=== PATIENT | female | born 1955 | race Caucasian/White ===

== ENCOUNTER 2018-03-13 13:52 | Inpatient (IN) ==
[2018-03-13] MEDS ORDERED: Albuterol 2.5 MG/3 ML NEBULIZER IH ONE (14:22)
[2018-03-13] MEDS ORDERED: CeFAZolin Syr 2,000MG/20 ML 2,000 MG/20 ML SYRINGE IVPB ONE (14:22)
--- NOTE | 2018-03-13 14:27 | History & Physical Report ---
Date of Encounter: 03/13/18 Time of Encounter: 14:26 24 Hour HP Update - Instructions Instructions: If the History and Physical is less than 30 days old and was completed prior to A.M. admission and or procedure and has NOT been updated on calendar day of procedure please complete this update prior to performing procedure. - Update Patient reports changes in Medical Condition: No Changes in examination, assessment, or condition: No Changes in Medication: No Preop tests/diagnostics Reviewed: Yes Surgery Remains Indicated: Yes Consent for Planned Operative Procedure(s) Verified: Yes - Pre-Operative Checklist Preoperative Checklist Indicated: No Prophylactic Antibiotic Ordered: Yes Is VTE Prophylaxis Indicated?: Yes
--- NOTE | 2018-03-13 14:29 | Discharge Summary ---
Date of Encounter: 03/14/18 Time of Encounter: 06:51 - Discharge Diagnosis (1) Rotator cuff tear arthropathy of right shoulder Priority: Primary Status: Chronic (2) Status post reverse total replacement of right shoulder Priority: Primary Status: Acute (3) Morbid obesity with BMI of 40.0-44.9, adult Priority: Secondary Status: Chronic (4) Hypertension Priority: Secondary Status: Chronic Qualifiers: Hypertension type: unspecified Qualified Code(s): I10 - Essential (primary ) hypertension (5) Hyperlipidemia Priority: Secondary Status: Chronic Qualifiers: Hyperlipidemia type: unspecified Qualified Code(s): E78.5 - Hyperlipidemia , unspecified (6) COPD (chronic obstructive pulmonary disease) Priority: Secondary Status: Chronic Qualifiers: COPD type: unspecified COPD Qualified Code(s): J44.9 - Chronic obstructive pulmonary disease, unspecified (7) Type 2 diabetes mellitus Priority: Secondary Status: Chronic Qualifiers: Diabetes mellitus shelter insulin use: unspecified shelter insulin use status Diabetes mellitus complication status: without complication Qualified Code(s): E11.9 - Type 2 diabetes mellitus without complications - Hospital Course Hospital course: Ms. Orosco is a 62 year old female Status post right total shoulder replacement reverse The patient had an uneventful postoperative course. They received antibiotics and physical therapy and were discharged in stable condition. There will follow -up in the office in 2 weeks. - Time Spent with Patient Total time spent providing and/or coordinating discharge services: - Discharge Medications Home Medications: Cholecalciferol (D-3) [Vitamin D] 2,000 unit PO DAILY 03/13/18 [History] FLUoxetine HCl [Prozac] 40 mg PO DAILY 03/13/18 [History] Levothyroxine [Synthroid] 125 mcg PO 0630 03/13/18 [History] Metoprolol [Lopressor] 50 mg PO BID 03/13/18 [History] Naproxen Sodium [Aleve] 220 mg PO BID PRN 03/13/18 [History] Omeprazole [PriLOSEC] 40 mg PO DAILY 03/13/18 [History] OxyCODONE Immed Rel [Roxicodone 5 MG] 5 mg PO Q4HR PRN 5 Days #20 tablet [Rx] OxyCODONE Immed Rel [Roxicodone 5 MG] 5 mg PO Q4HR PRN 5 Days #20 tablet [Rx] Pravastatin Sodium [Pravachol] 40 mg PO HS 03/13/18 [History] Allergies/Adverse Reactions: 3 Allergy/AdvReac Type Severity Reaction Status Date / Time No Known Allergies Allergy Verified 03/13/18 14:21 Primary care physician: Diamond Parrish - Patient Status Disposition: Home, Self-Care Condition: Good Functional capacity at discharge: independent ambulation Overall status at discharge: patient is progressing back to baseline - Discharge Instructions Follow Up With: Diamond Parrish, WASTEWATER TECHNICIAN [Primary Care Provider] -
[2018-03-13] MEDS ORDERED: Ringers Solution, Lactated 1,000 ML IVC SCH ×2 (14:30→18:15)
[2018-03-13] MEDS ORDERED: ROPIVACAINE HCL/PF 0.5% 30 ML VIAL ONE ×2 (14:45→15:21)
[2018-03-13] MEDS ORDERED: Bupivacaine/Clonidine Syringe 1 EACH SYRINGE ONE (14:45)
--- NOTE | 2018-03-13 14:58 | Anesthesia Evaluation PreOp ---
Date of Encounter: 03/13/18 Time of Encounter: 14:56 - Past History Planned Operation: Right reverse total shoulder arthroplasty Cardiac History: HTN, Hyperlipidemia Pulmonary History: COPD INFORMATION TECHNOLOGY AUDITOR History: Denies Any Significant HX Other Medical History: Diabetes Type II (Not prev diagnosed, HbA1c), GERD ( Controlled) Anesthesia History: No Prior Anesthetic Complications, Past Anesthesia Alcohol Use: none Drug use: none Medications and Allergies Cholecalciferol (D-3) [Vitamin D] 2,000 unit PO DAILY 03/13/18 [History] FLUoxetine HCl [Prozac] 40 mg PO DAILY 03/13/18 [History] Levothyroxine [Synthroid] 125 mcg PO 0603/13/18 [History] Metoprolol [Lopressor] 50 mg PO BID 03/13/18 [History] Naproxen Sodium [Aleve] 220 mg PO BID PRN 03/13/18 [History] Omeprazole [PriLOSEC] 40 mg PO DAILY 03/13/18 [History] OxyCODONE Immed Rel [Roxicodone 5 MG] 5 mg PO Q4HR PRN 5 Days #20 tablet [Rx] OxyCODONE Immed Rel [Roxicodone 5 MG] 5 mg PO Q4HR PRN 5 Days #20 tablet [Rx] Pravastatin Sodium [Pravachol] 40 mg PO HS 03/13/18 [History] 3 Allergy/AdvReac Type Severity Reaction Status Date / Time No Known Allergies Allergy Verified 03/13/18 14:21 - Meds/Allergy Pre-op Review Medications Reviewed: Yes (Also Buspar, Symbicort) Allergies Reviewed: Yes Beta Blockers on Current Med List: Yes If Beta Blockers taken, Date/Time (Last Dose taken): 0800 Anesthesia Results - Labs Laboratory Tests 03/06/18 03/06/18 03/06/18 15:45 15:45 15:48 Hgb 11.3 L Hct 35.9 Plt Count 324 Potassium 4.0 Carbon Dioxide 28 Creatinine 0.90 Est GFR (Non-Af Amer) > 60 Hemoglobin A1c 6.2 H - Imaging EKG: report reviewed (SINUS RHYTHM NONSPECIFIC T-WAVE ABNORMALITY) Anesthesia Exam O2 Sat Height 1.63 m Height 1.63 m Weight 105.687 kg Weight 105.687 kg O2 Sat by Pulse Oximetry 96 Vital Signs/O2 Sat/Glucose, Most Recent Temp Pulse Resp BP Pulse Ox 97.9 F 59 16 148/81 96 03/13/18 14:39 03/13/18 14:39 03/13/18 14:39 03/13/18 14:39 03/13/18 14:39 NPO (# of Hours): 8 - HEENT Pupil (Motor): Pupils equal Mallampati: II Teeth: Missing Denture Type: Upper: Partial Oral Opening: Greater than 3 - Cardiac Rhythm: Regular - Pulmonary Breath Sounds: bilateral Clear Anesthesia Assess/Plan ASA Score: 3 Modified Conger Scale for Level of Consciousness: Cooperative, oriented, and tranquil Anesthetic Plan: General, Regional Monitoring Plan: Standard Monitors Recovery Plan: PACU Anes Supervising Prov Stmt: Patient informed and consented. Risks, benefits, and alternatives discussed. Patient wishes to proceed.
[2018-03-13] MEDS ORDERED: *HR* Methadone 10 MG TABLET PO ONE (15:01)
[2018-03-13] MEDS ORDERED: Pregabalin 75 MG CAPSULE PO ONE (15:01)
[2018-03-13] MEDS ORDERED: *HR* Midazolam HCl 2 MG/2 ML VIAL ONE (15:14)
[2018-03-13] MEDS ORDERED: *HR* FentaNYL (PF) 100 MCG/2 ML VIAL ONE (15:14)
[2018-03-13] MEDS ORDERED: *HR* Propofol 200 MG/20 ML VIAL IVP ONE (15:14)
[2018-03-13] MEDS ORDERED: Lidocaine -MPF 2% 2 ML VIAL ONE (15:18)
[2018-03-13] MEDS ORDERED: Lidocaine -MPF 4% 5 ML AMPUL ONE (15:30)
--- NOTE | 2018-03-13 15:57 | Anesthesia Procedures ---
Date of Encounter: 03/13/18 Time of Encounter: 15:40 Procedures: Anesthesia - Nerve Block Procedure Date: 03/13/18 Time: 15:40 Surgical Procedure: Right TSA Checklist: Correct Patient Identifier, Correct procedure, History checked Correct side: Right Blood Thinner: No Monitor Applied: BP, Pulse Oximetry Supplemental Oxygen via Nasal Cannula (L/min): 2 Sedation: Versed (mg): 1 Sedation: Fentanyl (mcg): 100 Indication: Post Op Analgesia Pre-op Neuro Deficits: No Block Type: Supraclavicular, Other (Sup. Cervical) Catheter placed: No Sterile Technique: Yes Ultrasound used: Yes Anatomy identified: Yes Visual spread of Local: Yes Neuro Stimulation: No Blood on Needle Aspiration: No Smooth Injection of Local: Yes Pain with Injection of Local: No Prep: Chlorhexadine Needle: 22 x 50 mm Stimuplex Local: Other (30ml ropivaciane 0.5% with 10mg dexamethasone for SC, 15ml 0.5% bupivacaine/clonidine for SC) Complications: None/effective block Anes Supervising Prov Stmt: Procedure performed by Cari FAN, in my continuous presence and supervision.
[2018-03-13] MEDS ORDERED: EPHEDrine 50 MG/ML VIAL ONE (16:40)
[2018-03-13] MEDS ORDERED: *HR* PHENYLEPHRINE 1,000 MCG/10 ML SYRINGE IVP ONE (16:42)
[2018-03-13] MEDS ORDERED: Dexamethasone 4 MG/ML VIAL ONE (16:51)
[2018-03-13] MEDS ORDERED: Ondansetron 4 MG/2 ML VIAL ONE (16:51)
[2018-03-13] MEDS ORDERED: *HR* Promethazine 25 MG/ML VIAL IVP PRN (16:54)
[2018-03-13] MEDS ORDERED: Ondansetron 4 MG/2 ML VIAL IVP ONE (16:54)
[2018-03-13] MEDS ORDERED: *HR* Meperidine 25 MG/ML SYRINGE IVP PRN (16:54)
[2018-03-13] MEDS ORDERED: *HR* OxyCODONE Immed Rel 5 MG TABLET PO PRN (16:54)
[2018-03-13] MEDS ORDERED: *HR* Labetalol 20 MG/4 ML SYRINGE IVP PRN (16:54)
--- NOTE | 2018-03-13 17:22 | Orthopedic Operative Note ---
Date of procedure: 03/13/18 Pre-op diagnosis: Left shoulder cuff tear arthropathy Post-op diagnosis: same Procedure: Procedure: Total Shoulder Replacment Reverse, Estimated blood loss: 100 cc Hardware: Metal and polyethylene replacement: Arthrex small glenoid baseplate, 2 4.5 screws. 1 6.5 screw, 39+4 glenosphere, 6 humeral stem, poly insert 6 Exam Under anesthesia: Full motion no instability Procedural Notes: Grade 4 arthritic changes humeral head glenoid socket, rotator cuff tear Operative procedure: The patient was brought to the operating room and placed on the operating room table. After general anesthesia was administered the operative shoulder was examined. Findings were noted. The patient was placed in the modified beachchair position. All pressure points were padded appropriately. And the head was stabilized in the neutral position. The operative extremity was prepped and draped in the sterile surgical fashion. The patient received IV antibiotics prior to skin incision. A standard deltopectoral approach was made to the operative shoulder. Incision was made to the skin and subcutaneous tissue,hemo stasis was obtained with Bovie cautery. Using careful blunt dissection the cephalic vein was identified and mobilized medially. The deltopectoral interval was developed and the clavipectoral fascia was incised. The subscap was released off the lesser tuberosity and tagged with #2 FiberWire suture subscap was irreparable. The humerus was dislocated patient noted to have irreparable tear supraspinatus tendon, and the humeral cut was made along the anatomic neck. Patient noted to have grade 4 arthritic changes humeral head. Anterior and posterior Bankart retractors were placed to expose the glenoid. Patient noted to have grade 4 arthritic changes glenoid socket. The glenoid guide was seated and the centering hole was made. It was reamed with the appropriate reamer. The small baseplate was seated and secured with (2) 4.5 screws and one 6.5 screw. The baseplate was irrigated and dried and the 39+4 Glenosphere was seated and secured with the Alvarenga taper. The Alvarenga taper was tested and found to be secure the humerus was redislocated and prepared with the diaphyseal reamers, followed by a broaching process up to the appropriate size 6 in the patient's anatomic version. The metaphyseal reamer was then utilized. Trial reduction found the shoulder to be relocatable. Trial components were removed and the 6 stem was impacted in place in the patient's anatomic version. Trial reduction found the shoulder to be relocatable and stable with the appropriate 6. Trial component was removed and the real implant was seated and secured the shoulder was reduced. The shoulder had excellent motion and excellent stability and no evidence of dislocation. The deep tissue was irrigated with pulse irrigation. The deltopectoral interval was closed with a running #1 PDS suture, subcutaneous tissue was irrigated and closed with 0 PDS suture, the skin was closed with Dermabond. The patient was placed in a sterile dressing, abduction brace and extubated. The patient was then transferred to the recovery room in stable condition. Anesthesia: GETA Surgeon: Cezar Rivero Was there an obstetric assistant present: No Estimated blood loss (cc): 100 Condition: stable Disposition: PACU
[2018-03-13] MEDS ORDERED: Albuterol 2.5 MG/3 ML NEBULIZER ONE (17:34)
--- NOTE | 2018-03-13 17:59 | Anesthesia Evaluation Post Op ---
Date of Encounter: 03/13/18 Time of Encounter: 17:58 - Vital Signs Vital Signs: Vital Signs/O2 Sat, Most Current Temp Pulse Resp BP Pulse Ox 98.2 F 73 16 143/87 93 03/13/18 17:35 03/13/18 17:45 03/13/18 17:45 03/13/18 17:45 03/13/18 17:45 - Lungs Lungs: Clear Ascult./Percussion - Airway Airway: Non-obstructed - Cardiovascular Regular Rate - Mental Status Mental Status: Alert & Oriented, Answers Appropriately - Pain Pain Scale: 0 Pain Scale used: Numeric (1 - 10) - Nausea Vomiting Nausea Vomiting: Not Present - Hydration Hydration: Ice chips, Has not voided - Discharge PostOp Status: Transfer Patient to floor
[2018-03-13] MEDS ORDERED: *HR* Enoxaparin 30 MG/0.3 ML SYRINGE SQ SCH (18:00)
[2018-03-13 18:11] LABS: Hematocrit 35.4 % (35.3-44.9); Hemoglobin 11.3 g/dL (11.5-15.4)
[2018-03-13] MEDS ORDERED: *HR* OxyCODONE/APAP 5/325 TABLET PO PRN (18:15)
[2018-03-13] MEDS ORDERED: Ondansetron 4 MG/2 ML VIAL IVP PRN (18:15)
[2018-03-13] MEDS ORDERED: MOM Conc 10 ML UD.LIQ PO PRN (18:15)
[2018-03-13] MEDS ORDERED: traMADol 50 MG TABLET PO PRN (18:15)
[2018-03-13] MEDS ORDERED: Temazepam 15 MG CAPSULE PO PRN (18:15)
[2018-03-13] MEDS ORDERED: Naloxone 0.4 MG/ML INJ IVP PRN (18:15)
[2018-03-13] MEDS ORDERED: Sennosides 8.6 MG TABLET PO PRN (18:15)
[2018-03-14] MEDS: ceFAZolin 2,000 MG in 0.9 % Sodium Chloride 100 ML IVPB SCH ×2 (00:06→07:36)
[2018-03-14 01:51] LABS: Hemoglobin 11.7 g/dL (11.5-15.4)
[2018-03-14] MEDS ORDERED: *HR* Enoxaparin 30 MG/0.3 ML SYRINGE SQ SCH (06:00)
--- NOTE | 2018-03-14 06:52 | Orthopedics Progress Note ---
Date of Encounter: 03/14/18 Time of Encounter: 06:52 - Assessment and Plan (1) Rotator cuff tear arthropathy of right shoulder Current Visit: Yes Status: Chronic (2) Status post reverse total replacement of right shoulder Current Visit: Yes Status: Acute (3) Morbid obesity with BMI of 40.0-44.9, adult Current Visit: Yes Status: Chronic (4) Hypertension Current Visit: Yes Status: Chronic Qualifiers: Hypertension type: unspecified Qualified Code(s): I10 - Essential (primary ) hypertension (5) Hyperlipidemia Current Visit: Yes Status: Chronic Qualifiers: Hyperlipidemia type: unspecified Qualified Code(s): E78.5 - Hyperlipidemia , unspecified (6) COPD (chronic obstructive pulmonary disease) Current Visit: Yes Status: Chronic Qualifiers: COPD type: unspecified COPD Qualified Code(s): J44.9 - Chronic obstructive pulmonary disease, unspecified (7) Type 2 diabetes mellitus Current Visit: Yes Status: Chronic Qualifiers: Diabetes mellitus usp insulin use: unspecified usp insulin use status Diabetes mellitus complication status: without complication Qualified Code(s): E11.9 - Type 2 diabetes mellitus without complications Subjective Interval history: Patient was seen this morning doing well without complaints. Afebrile vital signs stable. Operative extremity: Neurovascularly intact Dressing clean dry and intact Calves nontender Assessment and plan: Continue with postoperative care Discharged today Objective Vital signs: Vital Signs Temp Pulse Resp BP Pulse Ox 03/14/18 04:30 97.8 F 65 14 135/80 93 03/14/18 00:17 97.5 F L 70 16 132/78 93 03/13/18 20:45 97.6 F 74 15 130/81 92 03/13/18 19:46 97.8 F 75 15 138/72 92 03/13/18 18:45 97.5 F L 72 16 129/89 90 03/13/18 18:16 98.1 F 66 16 131/77 91 03/13/18 18:05 98.1 F 68 16 138/75 93 03/13/18 17:55 69 16 151/98 93 03/13/18 17:45 73 16 143/87 93 03/13/18 17:35 98.2 F 77 16 145/81 97 03/13/18 16:10 59 13 117/68 94 03/13/18 15:56 58 12 128/52 94 03/13/18 15:41 60 14 133/79 94 03/13/18 15:28 63 14 118/85 96 03/13/18 14:39 97.9 F 59 16 148/81 96 Intake and Output 03/13/18 03/13/18 03/14/18 15:59 23:59 07:59 Intake Total 0 / 0 Output Total 100 / 100 Balance -100 / -100 Intake: Oral 0 / 0 Output: Estimated Blood Loss 100 / 100 Other: # Voids 1 Weight 105.687 kg - Labs CBC & BMP: 03/14/18 01:08 - VTE Documentation of Mechanical Device: Venous foot pump, device Consult Discharge Plan - Plan Referrals: Diamond Parrish, REPORT DEVELOPER [Primary Care Provider] -
[2018-03-14] MEDS ORDERED: Cholecalciferol (D-3) 1,000 UNIT TABLET PO SCH (09:00)
[2018-03-14] MEDS ORDERED: FLUoxetine 20 MG CAPSULE PO SCH (09:00)
[2018-03-14 12:21] VITALS: BP 122/72
== END 2018-03-14 13:36 | disposition home or self-care (01) | DRG 483 ==
LOC: SAMDAY 13:52 → 3NENU 18:13
PROVIDERS: ADMIT Orthopaedic Surgery; ATTEND Orthopaedic Surgery

== ENCOUNTER 2019-03-12 11:35 | Inpatient (IN) ==
--- NOTE | 2019-03-12 11:51 | Anesthesia Evaluation PreOp ---
Date of Encounter: 03/12/19 Time of Encounter: 11:49 - Past History Planned Operation: left TSR Cardiac History: HTN, Hyperlipidemia Pulmonary History: COPD Other Medical History: Diabetes Type II, Thyroid, GERD, Other (obese) Anesthesia History: No Prior Anesthetic Complications, Past Anesthesia (right TSR, removal IUD, uterine cystectomy) Alcohol Use: rarely Drug use: none Medications and Allergies Cholecalciferol (D-3) [Vitamin D] 2,000 unit PO DAILY 03/13/18 [History] FLUoxetine HCl [Prozac] 40 mg PO DAILY 03/13/18 [History] Levothyroxine [Synthroid] 125 mcg PO 0630 03/13/18 [History] Metoprolol [Lopressor] 50 mg PO BID 03/13/18 [History] Naproxen Sodium [Aleve] 220 mg PO BID PRN 03/13/18 [History] Omeprazole [PriLOSEC] 40 mg PO DAILY 03/13/18 [History] Pravastatin Sodium [Pravachol] 40 mg PO HS 03/13/18 [History] OxyCODONE Immed Rel [Roxicodone 5 MG] 5 mg PO Q6HR PRN 7 Days #28 tablet 05/24 [Rx] Allergy/AdvReac Type Severity Reaction Status Date / Time No Known Allergies Allergy Verified 03/13/18 14:21 - Meds/Allergy Pre-op Review Medications Reviewed: Yes Allergies Reviewed: Yes Beta Blockers on Current Med List: Yes If Beta Blockers taken, Date/Time (Last Dose taken): today 829 Anesthesia Results - Labs Laboratory Tests 03/03/19 03/03/19 10:00 10:00 Hgb 12.7 Hct 39.7 Plt Count 326 Sodium 137 Potassium 4.4 BUN 13 Creatinine 0.97 Anesthesia Exam Weight: 237 lbs - HEENT Pupil (Motor): EOMI Mallampati: II Teeth: Missing Denture Type: Upper: Partial Oral Opening: Greater than 3 - CANDY SPREADER LOC: Oriented CANDY SPREADER Motor: Normal RUE, Normal LUE, Normal RLE, Normal LLE, Normal Face CANDY SPREADER Sensory: Normal: RUE, LUE, RLE, LLE, Face - Cardiac Rhythm: Regular Murmur: None - Pulmonary Breath Sounds: bilateral Clear Respiratory Effort: Symmetrical Anesthesia Assess/Plan ASA Score: 3 Level of consciousness: Cooperative, Oriented, Tranquil Anesthetic Plan: General, Regional Nerve Block Regional Nerve Block Plan: Interscalene Monitoring Plan: Standard Monitors Recovery Plan: PACU (agrees to GA and nerve block)
[2019-03-12] MEDS ORDERED: Celecoxib 200 MG CAPSULE PO SCH (12:00)
[2019-03-12] MEDS ORDERED: *HR* FentaNYL (PF) 100 MCG/2 ML VIAL ONE ×2 (12:03→13:23)
[2019-03-12] MEDS ORDERED: *HR* Midazolam HCl 2 MG/2 ML VIAL ONE ×2 (12:03→13:23)
[2019-03-12] MEDS ORDERED: Ondansetron 4 MG/2 ML VIAL ONE ×2 (12:04→13:23)
[2019-03-12] MEDS ORDERED: CeFAZolin Syr 2,000MG/20 ML 2,000 MG/20 ML SYRINGE IVPB ONE (12:04)
[2019-03-12] MEDS ORDERED: *HR* Propofol 200 MG/20 ML VIAL IVP ONE ×2 (12:04→13:23)
[2019-03-12] MEDS ORDERED: Lidocaine -MPF 2% 2 ML VIAL ONE ×2 (12:04→13:23)
[2019-03-12] MEDS ORDERED: *HR* Rocuronium Bromide 50 MG/5 ML VIAL ONE (12:04)
[2019-03-12] MEDS ORDERED: Albuterol 2.5 MG/3 ML NEBULIZER IH ONE (12:04)
[2019-03-12] MEDS ORDERED: *HR* Succinylcholine 200 MG/10 ML VIAL IVP ONE ×2 (12:04→13:23)
[2019-03-12] MEDS ORDERED: Dexamethasone 4 MG/ML VIAL ONE ×2 (12:04→13:23)
[2019-03-12] MEDS ORDERED: Ringers Solution, Lactated 1,000 ML IVC SCH ×2 (12:15→16:36)
[2019-03-12] MEDS ORDERED: Lidocaine -MPF 4% 5 ML AMPUL ONE ×2 (12:41→13:23)
--- NOTE | 2019-03-12 13:08 | History & Physical Report ---
Date of Encounter: 03/12/19 Time of Encounter: 13:08 24 Hour HP Update - Instructions Instructions: If the History and Physical is less than 30 days old and was completed prior to A.M. admission and or procedure and has NOT been updated on calendar day of procedure please complete this update prior to performing procedure. - Update Patient reports changes in Medical Condition: No Changes in examination, assessment, or condition: No Changes in Medication: No Preop tests/diagnostics Reviewed: Yes Surgery Remains Indicated: Yes Consent for Planned Operative Procedure(s) Verified: Yes - Pre-Operative Checklist Preoperative Checklist Indicated: No Prophylactic Antibiotic Ordered: Yes Is VTE Prophylaxis Indicated?: Yes
--- NOTE | 2019-03-12 13:11 | Discharge Summary ---
Orders not resulted at time of discharge: Pending orders 03/12/19 12:01 XR post op reverse apex LT [XR] Routine Hemoglobin and Hematocrit [HEME] Routine Date of Encounter: 03/13/19 Time of Encounter: 08:10 - Discharge Diagnosis (1) Status post reverse total replacement of right shoulder Priority: Primary Status: Acute (2) COPD (chronic obstructive pulmonary disease) Priority: Secondary Status: Chronic Qualifiers: COPD type: unspecified COPD Qualified Code(s): J44.9 - Chronic obstructive pulmonary disease, unspecified (3) Hyperlipidemia Priority: Secondary Status: Chronic Qualifiers: Hyperlipidemia type: unspecified Qualified Code(s): E78.5 - Hyperlipidemia, unspecified (4) Hypertension Priority: Secondary Status: Chronic Qualifiers: Hypertension type: unspecified secondary hypertension Qualified Code(s): I15.9 - Secondary hypertension, unspecified; I15 - Secondary hypertension (5) Morbid obesity with BMI of 40.0-44.9, adult Priority: Secondary Status: Chronic (6) Rotator cuff tear arthropathy of right shoulder Priority: Primary Status: Acute (7) Type 2 diabetes mellitus Priority: Secondary Status: Chronic Qualifiers: Diabetes mellitus long-term insulin use: unspecified long-term insulin use status Diabetes mellitus complication status: without complication Qualified Code(s): E11.9 - Type 2 diabetes mellitus without complications - Hospital Course Hospital course: Ms. Orosco is a 63 year old female The patient had an uneventful postoperative course. They received antibiotics and physical therapy and were discharged in stable condition. There will follow-up in the office in 2 weeks. - Time Spent with Patient Total time spent providing and/or coordinating discharge services: - Discharge Medications Prescriptions: New OxyCODONE Immed Rel [Roxicodone 5 MG] 5 mg PO Q6HR PRN 5 Days #20 tablet PRN Reason: Pain Ibuprofen [Motrin] 600 mg PO Q8HR #20 tab Continued Omeprazole [PriLOSEC] 40 mg PO DAILY Naproxen Sodium [Aleve] 220 mg PO BID PRN PRN Reason: Mild To Moderate Pain Metoprolol [Lopressor] 50 mg PO BID Levothyroxine [Synthroid] 125 mcg PO 0630 FLUoxetine HCl [Prozac] 40 mg PO DAILY Cholecalciferol (D-3) [Vitamin D] 2,000 unit PO DAILY Oxybutynin Chloride [Ditropan Xl] 10 mg PO DAILY Atorvastatin [Lipitor] 40 mg PO HS Buspirone HCl [Buspar] 10 mg PO BID Magnesium 200 mg PO HS Home Medications: Cholecalciferol (D-3) [Vitamin D] 2,000 unit PO DAILY 03/13/18 [History] FLUoxetine HCl [Prozac] 40 mg PO DAILY 03/13/18 [History] Levothyroxine [Synthroid] 125 mcg PO 0630 03/13/18 [History] Metoprolol [Lopressor] 50 mg PO BID 03/13/18 [History] Naproxen Sodium [Aleve] 220 mg PO BID PRN 03/13/18 [History] Omeprazole [PriLOSEC] 40 mg PO DAILY 03/13/18 [History] Atorvastatin [Lipitor] 40 mg PO HS 03/12/19 [History] Buspirone HCl [Buspar] 10 mg PO BID 03/12/19 [History] Ibuprofen [Motrin] 600 mg PO Q8HR #20 tab 03/12/19 [Rx] Magnesium 200 mg PO HS 03/12/19 [History] OxyCODONE Immed Rel [Roxicodone 5 MG] 5 mg PO Q6HR PRN 5 Days #20 tablet 03/12/19 [Rx] Oxybutynin Chloride [Ditropan Xl] 10 mg PO DAILY 03/12/19 [History] Allergies/Adverse Reactions: Allergy/AdvReac Type Severity Reaction Status Date / Time No Known Allergies Allergy Verified 03/13/18 14:21 Primary care physician: Diamond Parrish - Patient Status Disposition: Home, Self-Care Condition: Good Functional capacity at discharge: independent ambulation Overall status at discharge: patient is progressing back to baseline - Discharge Instructions Follow Up With: Clara Katz PAC [Physician Motor Vehicle Lecturer] - 03/19/19 3:15 pm Diamond Parrish, SOCIAL SECURITY ASSESSOR [Primary Care Provider] - Additional Instructions: Discharge Instructions: Total Shoulder Please call [facility] ([phone]), your Primary Care Physician, or report to the Emergency Room if you have any of the following symptoms: Nausea, vomiting, fever greater that 101.5, swelling, chest pain, shortness of breath, increased pain/redness/drainage/odor for your incision site, numbness/tingling, or any other concerning symptoms. ACTIVITY: Always keep your arm in the sling. Do not raise your arm away from your body. Do not use your arm to help with getting in or out of bed. No weight bearing permitted. Only perform those exercises given to you by your therapist. Incentive Spirometer 10 times an hour. MEDICATIONS: Upon discharge resume your home medications. Take all the medications as prescribed. Take a stool softener if taking narcotic pain medications. Stool softeners are only effective if you drink enough fluids. Drink 6-8 glass of water or fluids a day, unless this is not allowed for another health problem. Despite using stool softeners, if you haven't had a bowel movement in 3 days, please switch to a gentle laxative. Gentle laxatives are sold over the counter. You should have a bowel movement within 24 hours, if not call the office. You will be discharged from the hospital with a prescription for pain medication. You are encouraged to decrease the use of narcotic pain medication as tolerated. Should you require a refill, please call the office. [facility] prescribes narcotic pain medication for only 4-6 weeks after surgery. If you require pain medication beyond this time period, you may be referred to your Primary Care Physician or to the Pain Clinic for further evaluation. Plan ahead for refills on pain medication as many narcotics either need to be picked up at the office or mailed. It is best to call 48-72 hours in advance of needing a prescription refill so you don't run out of medication. To help control the post-operative pain, you may take NSAIDs (Aleve,Advil, Motrin, Ibuprofen, Naprosyn) or Tylenol as prescribed on the bottle in addition to the pain medication. WOUND CARE: Leave the dressing on for 7-10 days. You may change the dressing if it becomes saturated greater than 50%. Do not get the dressing wet at anytime. Wash your hands with antibacterial soap, rinse and dry prior to any wound care. If you have mallory the visiting nurse or rehab facility can remove the stapes 10-14 days after surgery and place steri-strips across the wound. Leave the steri-strips in place until they fall off on their own. You may let water from the shower run on top of the steri-strips. If you do not have a visiting nurse or rehab facility, you will need to return to the office at 10-14 days for the mallory to be removed. If you have itching or redness around the dressing call the office. FOLLOW-UP: Please follow up with your surgeon in the orthopedic clinic, as scheduled
[2019-03-12] MEDS ORDERED: Ethanol\\Acetic Acid\\Na Ace\\Ben 1,000 ML IRRIG.SOLN IR ONE (13:48)
[2019-03-12] MEDS ORDERED: ROPIVACAINE HCL/PF 0.5% 30 ML VIAL ONE (14:21)
[2019-03-12] MEDS ORDERED: ROPIVACAINE/PF/NS SYRINGE INTRAART ONE (14:22)
[2019-03-12] MEDS ORDERED: EPHEDrine 50 MG/ML VIAL ONE (15:00)
--- NOTE | 2019-03-12 15:16 | Anesthesia Procedures ---
Date of Encounter: 03/12/19 Time of Encounter: 14:30 Procedures: Anesthesia - Nerve Block Procedure Date: 03/12/19 Time: 14:30 Allergies/Adv Reactions: nkda Pre-op Diagnosis: left shoulder arthritis Surgical Procedure: left shoulder replacement Checklist: Correct Patient Identifier, Correct procedure, History checked Correct side: Left Blood Thinner: No Monitor Applied: EKG, BP, Pulse Oximetry Supplemental Oxygen via Nasal Cannula (L/min): 2 Sedation: Versed (mg): 2 Sedation: Fentanyl (mcg): 100 Indication: Post Op Analgesia Pre-op Neuro Deficits: No Block Type: Supraclavicular (icb/scp) Catheter placed: No Sterile Technique: Yes Ultrasound used: Yes Anatomy identified: Yes Visual spread of Local: Yes Neuro Stimulation: Yes Nerve Stimulator Range: 0.2 - 0.4 mA Blood on Needle Aspiration: No Smooth Injection of Local: Yes Pain with Injection of Local: No Prep: Chlorhexadine Needle: 22 x 50 mm Stimuplex Volume (cc): 30 Number of Attempts: 1 Complications: None/effective block Vitals: Vital Signs - Last 8 Hours Temp Pulse Resp BP Pulse Ox 03/12/19 14:27 53 14 144/67 97 03/12/19 11:56 99.0 F 60 18 186/92 95 Intake and Output 03/11/19 03/12/19 03/12/19 23:59 07:59 15:59 Other: Weight 107.501 kg Patient Weight 03/12/19 23:59 Weight 107.501 kg
--- NOTE | 2019-03-12 15:38 | Orthopedic Operative Note ---
Date of procedure: 03/12/19 Pre-op diagnosis: Left shoulder cuff tear arthropathy Post-op diagnosis: same Procedure: Procedure: Total Shoulder Replacment Reverse, left Estimated blood loss: 50 cc Hardware: Metal and polyethylene replacement: Arthrex 24, +4 , 25 screw glenoid baseplate, 4 locking 5.5 screw, 36+4 glenosphere, 6 apex humeral stem, poly insert 3 Exam Under anesthesia: Full motion no instability Procedural Notes: Shoulder arthritis rotator cuff tear Operative procedure: The patient was brought to the operating room and placed on the operating room table. After general anesthesia was administered the operative shoulder was examined. Findings were noted. The patient was placed in the modified beachchair position. All pressure points were padded appropriately. And the head was stabilized in the neutral position. The operative extremity was preppe d and draped in the sterile surgical fashion. The patient received IV antibiotics prior to skin incision. A standard deltopectoral approach was made to the operative shoulder. Incision was made to the skin and subcutaneous tissue,hemo stasis was obtained with Bovie cautery. Using careful blunt dissection the cephalic vein was identified and mobilized medially. The deltopectoral interval was developed and the clavipectoral fascia was incised. The subscap was released off the lesser tuberosity and tagged with #2 FiberWire suture subscap irreparable.. The humerus was dislocated patient noted to have tear supraspinatus tendon, and the humeral cut was made along the anatomic neck. She noted to have grade 4 arthritic changes humeral head glenoid socket. Anterior and posterior Bankart retractors were placed to expose the glenoid. The glenoid guide was seated and the centering hole was made. It was reamed with the appropriate reamer. The 24, +4, 25 mm screw, baseplate was seated and secured with 4 locking 5.5 screw. The baseplate was irrigated and dried and the 36+4 Glenosphere was seated and secured with the Alvarenga taper. The Alvarenga taper was tested and found to be secure, glenosphere fixation was secondarily secured with the central screw. The humerus was redislocated and prepared with the diaphyseal reamers, followed by a broaching process up to the appropriate size 6 in the patient's anatomic version. The metaphyseal reamer was then utilized. Trial reduction found the shoulder to be relocatable. Trial components were removed and 6 stem was impacted in place in the patient's anatomic version. Trial reduction found the shoulder to be relocatable and stable with the appropriate 3. Trial component was removed and the real implant was seated and secured the shoulder was reduced. The shoulder had excellent motion and excellent stability and no evidence of dislocation. The deep tissue was irrigated with pulse irrigation. The deltopectoral interval was closed with a running #1 PDS suture, subcutaneous tissue was irrigated and closed with 0 PDS suture, the skin was closed with Dermabond. The patient was placed in a sterile dressing, abduction brace and extubated. The patient was then transferred to the recovery room in stable condition. Anesthesia: MARC Surgeon: Cezar Rivero Was there an support assistant present: No Estimated blood loss (cc): 50 Condition: critical
--- NOTE | 2019-03-12 16:17 | Anesthesia Evaluation Post Op ---
Date of Encounter: 03/12/19 Time of Encounter: 16:15 - Vital Signs Vital Signs: Vital Signs/O2 Sat/Glucose, Most Current Temp Pulse Resp BP Pulse Ox 03/12/19 16:05 71 15 152/88 92 03/12/19 15:55 64 16 161/87 94 03/12/19 15:45 98.0 F 67 16 157/86 92 03/12/19 14:27 53 14 144/67 97 - Lungs Lungs: Clear Ascult./Percussion - Airway Airway: Non-obstructed - Cardiovascular Regular Rate - Mental Status Mental Status: Alert & Oriented, Answers Appropriately - Pain Pain Scale: 0 - Nausea Vomiting Nausea Vomiting: Not Present - Hydration Hydration: Ice chips - Discharge PostOp Status: Transfer Patient to floor
[2019-03-12] MEDS ORDERED: *HR* OxyCODONE Immed Rel 5 MG TABLET PO PRN (16:36)
[2019-03-12] MEDS ORDERED: Temazepam 15 MG CAPSULE PO PRN (16:36)
[2019-03-12] MEDS ORDERED: Insulin LISPRO 300 UNITS/3 ML VIAL SQ SCH ×2 (16:36→21:00)
[2019-03-12] MEDS ORDERED: Sennosides 8.6 MG TABLET PO PRN (16:36)
[2019-03-12] MEDS ORDERED: D5% in Water 1,000 ML IVC PRN (16:36)
[2019-03-12] MEDS ORDERED: Ondansetron 4 MG/2 ML VIAL IVP PRN (16:36)
[2019-03-12] MEDS ORDERED: *HR* Dextrose 50 % in Water (Syg) 50 ML SYRINGE IVP PRN (16:36)
[2019-03-12] MEDS ORDERED: Dextrose Gel 15 GM/37.5 ML TUBE PO PRN ×2 (16:36)
[2019-03-12] MEDS ORDERED: *HR* OxyCODONE/APAP 5/325 TABLET PO PRN (16:36)
[2019-03-12] MEDS ORDERED: MOM Conc 10 ML UD.LIQ PO PRN (16:36)
[2019-03-12] MEDS ORDERED: traMADol 50 MG TABLET PO PRN (16:36)
[2019-03-12] MEDS ORDERED: *HR* Enoxaparin 30 MG/0.3 ML SYRINGE SQ SCH ×2 (18:00)
[2019-03-12 18:42] VITALS: BP 158/85
[2019-03-12] MEDS ORDERED: Magnesium Oxide 400 MG TABLET PO SCH (21:00)
[2019-03-12] MEDS ORDERED: BUSPIRONE HCL 10 MG TABLET PO SCH (21:00)
[2019-03-13] MEDS ORDERED: FLUoxetine 20 MG CAPSULE PO SCH (09:00)
[2019-03-13] MEDS ORDERED: Cholecalciferol (D-3) 1,000 UNIT TABLET PO SCH (09:00)
== END 2019-03-12 20:15 | disposition home or self-care (01) | DRG 483 ==
LOC: SAMDAY 11:35 → 3NENU 18:18
PROVIDERS: ADMIT Orthopaedic Surgery; ATTEND Orthopaedic Surgery